=== PATIENT | female | born 1985 | race African-American/Black ===

== ENCOUNTER 2020-05-14 11:02 | Outpatient (CLI) | payer OTHER ==
--- NOTE | 2020-05-14 11:24 | RAD ---
CHEST 2 VIEWS: HISTORY: Disability exam. FINDINGS: Heart size is within normal limits. Inspiration is less than optimal with some bilateral volume loss . Fairly extensive bilateral interstitial and linear parenchymal changes are noted. No confluent lo bar pneumonia. No significant pleural effusion. No cardiomegaly. IMPRESSION: Extensive bilateral linear and interstitial parenchymal changes, nonspecific. This could conceivably represent acute bilateral interstitial pneumonia or pneumonitis. This could certainly be related to chronic interstitial lung disease, nonspecific. No prior exams are available for comparison. POS: RRE
== END 2020-05-14 11:03 | disposition home or self-care (01) ==
LOC: BICRAD 11:02
PROVIDERS: ATTEND Internal Medicine
DX: Z02.71 Encounter for disability determination (principal)
CPT/HCPCS: 71046